=== PATIENT | male | born 1960 | race Caucasian/White ===

== ENCOUNTER 2022-03-17 07:14 | Day surgery (SDC) | payer OTHER, MEDICAID ==
[2022-03-17] MEDS ORDERED: Propofol 200 MG/20 ML SDV ONE ×2 (07:38→09:16)
[2022-03-17] MEDS ORDERED: fentaNYL 100 MCG/2 ML SDV ONE (07:38)
[2022-03-17] MEDS ORDERED: Midazolam 1 MG/ML 2 ML SDV ONE (07:38)
[2022-03-17] MEDS ORDERED: Lactated Ringers 1,000 ML IV SCH (08:00)
[2022-03-17] MEDS ORDERED: Lactated Ringers 1,000 ML ONE (09:32)
== END 2022-03-17 10:35 | disposition home or self-care (01) ==
LOC: JP.SDS 07:14
PROVIDERS: ATTEND Family Medicine
DX: Z12.11 Encounter for screening for malignant neoplasm of colon (principal); D12.3 Benign neoplasm of transverse colon; D12.8 Benign neoplasm of rectum; F17.200 Nicotine dependence, unspecified, uncomplicated; Z86.010 Personal history of colon polyps; Z80.0 Family history of malignant neoplasm of digestive organs
CPT/HCPCS: 45380; J2250; J2704; J3010; J7120